=== PATIENT | female | born 1935 | race Caucasian/White ===

== ENCOUNTER 2019-11-02 15:14 | Inpatient (IN) ==
[2019-11-02 16:00] LABS: BASO# 0.11 X1000 (0.0-0.2); BASO% 1.7 % (0.0-0.8); EOS# 0.13 X1000 (0.0-0.7); HEMATOCRIT 43.7 % (37.0-47.0); HEMOGLOBIN 13.1 g/dL (12.0-16.0); LYMPH# 0.89 X1000 (1.2-3.4); LYMPH% 13.8 % (20.5-51.1); MCH 26.4 PG (27-31); MCV 87.9 FL (81-99); MONO# 0.59 X1000 (0.11-0.59); MONO% 9.1 % (1.7-9.3); NEUT# 4.75 X1000 (1.4-6.5); NEUT% 73.4 % (42.2-75.2); PLT 171 X1000 (130-400); RBC 4.97 XMIL (4.2-5.4); RDW 14.3 % (11.5-14.5); WBC 6.47 X1000 (4.8-10.8)
[2019-11-02 16:31] LABS: CALCIUM 10.2 mg/dL (8.8-10.2); CREATININE 1.1 mg/dL (0.5-0.9); POTASSIUM 4.3 mmol/L (3.5-5.1)
[2019-11-02] MEDS ORDERED: LOVENOX SUBQ ONE (16:45)
--- NOTE | 2019-11-02 16:47 | Diag Imaging Result Doc PS360 ---
CHEST-2 VIEWS - 11/02/2019 INDICATION: SOB COMPARISON: None FINDINGS: The lungs are normally expanded and clear. Heart size and mediastinal contours are normal. No pneumothorax or pleural effusion. IMPRESSION: Negative exam. Electronically signed by Ketan Hall 11/02/2019 4:45 PM
--- NOTE | 2019-11-02 17:13 | Diag Imaging Result Doc PS360 ---
CT ANGIOGRM PULMONARY ARTERIES - 11/02/2019 INDICATION: extensive DVT, hypoxia TECHNIQUE: Axial CT images were obtained after administering intravenous contrast. Coronal MIP images were generated. COMPARISON: None FINDINGS: There is no pulmonary embolism. Heart and great vessels are normal. No adenopathy. There are cholecystectomy clips. Otherwise upper abdominal images are normal. There is some hazy dependent atelectasis in the lung bases. There is a calcified granuloma in the right lower lobe. Otherwise, no infiltrates. There are moderate degenerative changes of the spine. No acute or suspicious bony lesion. IMPRESSION: No acute disease. This exam was performed using automated exposure control, adjustment of mA or kV according to patient size, and/or use of iterative reconstruction technique Electronically signed by Ketan Hall 11/02/2019 5:11 PM
--- NOTE | 2019-11-02 17:40 | PROVIDER DOCUMENTATION ---
This chart was entered by Gloria Gamble Scribe, acting as scribe for Marlo Chappell MD. HPI-Musculoskeletal Pain/Inj - GENERAL Stated Complaint: "[facility]ILY [facility]IC" POSS BLOOD CLOTS Time Seen by Provider: 11/02/19 15:18 Source: patient - HX OF PRESENT ILLNESS-MUSKULOSKELTAL Nature of Presenting Problem: 84 yowf c/o LLE tenderness, L calf tenderness w/swelling and erythema starting 4 days ago. pt sts she has been recently tx for bronchitis and has been sitting in recliner more freq but has been moving around. denies guzmán, fever, cp and sob. no recent foreign travel or sitting in vehicle for long periods of time. hx of htn and high cholesterol. pt denies DVT hx. Severity in ED: mild Onset/Duration: 4 days ago Timing: still present Modifying Factors: improves with: nothing Any recent injury?: No Recently seen or treated by another doctor?: Yes - LOWER EXTREMITY PAIN/INJURY Lower Extremities Pain: leg: left Review of Systems - Adult - REVIEW OF SYSTEMS - ADULT Constitutional: reports: no symptoms reported. denies: fever, fatique, night sweats Eyes: reports: no symptoms reported Ears, Nose, Mouth & Throat: reports: no symptoms reported Cardiovascular: reports: no symptoms reported. denies: chest pain Respiratory: reports: no symptoms reported. denies: shortness of breath Gastrointestinal: reports: no symptoms reported. denies: diarrhea, nausea, vomiting Genitourinary: reports: no symptoms reported Musculoskeletal: reports: see HPI, bone pain (LLE pain,swelling, and erythtmea). denies: back pain, muscle weakness, neck pain Integumentary: reports: no symptoms reported Neurological: reports: no symptoms reported Psychiatric: reports: no symptoms reported Endocrine: reports: no symptoms reported Hematologic/Lymphatic: reports: no symptoms reported Allergic/Immunologic: reports: no symptoms reported All Other Systems: Reviewed and Negative Past History - Adult - PAST MEDICAL HISTORY-ADULT Review of Records: reports: Nursing Assessment Review, Medications Reviewed, Social history reviewed & non-contributory. Major Childhood Illnesses: reports: denies history Cardiovascular: reports: HTN, hyperlipidemia Respiratory: reports: denies history Gastrointestinal: reports: denies history Obstetrical/Gynecological: reports: denies history Genitourinary: reports: denies history Musculoskeletal: reports: denies history Neurological: reports: denies history Endocrine/Immune: reports: denies history Other Conditions: reports: denies history - PRIOR SURGERIES/PROCEDURES Surgical/Procedure History: reports: joint replacement (L knee) - IMMUNIZATION STATUS Childhood Immunizations: See Nurse Assessment Flu Vaccine: See Nurse Assessment - FAMILY HISTORY Family History: reviewed, not pertinent - SOCIAL HISTORY Smoking: non-smoker Substance Use: none/never Physical Exam-Injury Related - Physical Exam-Injury Related Initial Vital Signs Reviewed: Yes General Appearance: alert, no apparent distress, obese. negative: slow to resp ond, obtunded, combative Eyes: PERRL/EOMI Head, Ears, Nose, Mouth & Throat: other (OP exam deferred due to Covid-19 pandemic) Neck: non-tender, full range of motion, supple, normal inspection Respiratory: chest non-tender, lungs clear, normal breath sounds, other (hypoxic) Cardiovascular: normal peripheral pulses, regular rate, rhythm Chest/Breast: deferred Peripheral Pulses: dorsalis-pedis (R): 2+, dorsalis-pedis (L): 2+ Abdominal Exam: normal bowel sounds, non tender, soft Female Genitalia/Pelvic Exam: deferred Back Exam: normal inspection Extremity: normal range of motion, normal capillary refill, pelvis stable, calf tenderness (L calf medial and lateral), erythema (slight erythema LLE), swelling (LLE), tenderness (L thigh tenderness on palp medial and lateral). 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) Psych/Mental Status: normal mood/affect, normal thought content, normal thought process, oriented x 3 - Glascow Coma Score Best Eye Response ([place]): (4) open spontaneously Best Verbal Response ([place]): (5) oriented Best Motor Response ([place]): (6) obeys commands Diane Total: 15 Progress - PLAN OF CARE/RESULTS Progress/Plan/Lab Results: Vital Signs - 8 hr 11/02/19 15:29 Temperature 98.7 F Pulse Rate 73 Respiratory Rate 19 Blood Pressure 130/65 O2 Sat by Pulse Oximetry 93 L Laboratory Results - last 24 hr 11/02/19 11/02/19 15:37 15:37 WBC 6.47 RBC 4.97 Hgb 13.1 Hct 43.7 MCV 87.9 MCH 26.4 L MCHC 30.0 L RDW Std Deviation 14.3 Plt Count 171 MPV 11.0 H Immature Gran % (Auto) 0.0 Neut % (Auto) 73.4 Lymph % (Auto) 13.8 L [place] % (Auto) 9.1 Eos % (Auto) 2.0 Baso % (Auto) 1.7 H Immature Gran # (Auto) 0.00 Neut # (Auto) 4.75 Lymph # (Auto) 0.89 L [place] # (Auto) 0.59 Eos # (Auto) 0.13 Baso # (Auto) 0.11 Sodium 140 Potassium 4.3 Chloride 98 Carbon Dioxide 28 Anion Gap 14 BUN 25 H Creatinine 1.1 H Estimated GFR/1.73 m2 48 BUN/Creatinine Ratio 23 Glucose 131 H Calculated Osmolality 286 Calcium 10.2 Orders Category Date Time Status NEWS Score 2-4:Order NEWS Lactate Series NOW Care 11/02/19 15:48 Active CHEST-2 VIEWS [RAD] Stat Exams 11/02/19 15:[address] ANGIOGRM PULMONARY ARTERIES [CT] Stat Exams 11/02/19 16:02 Completed BASIC METABOLIC PANEL [CHEM] Stat Lab 11/02/19 15:37 Completed CBC WITH DIFF [HEME] Stat Lab 11/02/19 15:37 Completed D-DIMER [COAG] Stat Lab 11/02/19 15:37 Received Enoxaparin [Lovenox] Med 11/02/19 16:45 Discontinued 80 mg SUBQ NOW ONE Venous U/S Left Leg Stat Ther 11/02/19 15:25 Completed Transfer/Admit Order [TRANSFER] Routine Transfer 11/02/19 17:27 Ordered Result Diagrams: 11/02/19 15:37 11/02/19 15:37 - XRAY 1 XRAY Study: Chest Impression: Normal, See EMR Report (CHEST-2 VIEWS - 11/02/2019 INDICATION: SOB COMPARISON: None FINDINGS: The lungs are normally expanded and clear. Heart size and mediastinal contours are normal. No pneumothorax or pleural effusion. IMPRESSION: Negative exam. Electronically signed by Ketan Hall 11/02/2019 4:45 PM) - CT/MRI 1 CT Study: Angiogram Impression: See EMR Report (CT ANGIOGRM PULMONARY ARTERIES - 11/02/2019 INDICATION: extensive DVT, hypoxia TECHNIQUE: Axial CT images were obtained after administering intravenous contrast. Coronal MIP images were generated. COMPARISON: None FINDINGS: There is no pulmonary embolism. Heart and great vessels are normal. No adenopathy. There are cholecystectomy clips. Otherwise upper abdominal images are normal. There is some hazy dependent atelectasis in the lung bases. There is a calcified granuloma in the right lower lobe. Otherwise, no infiltrates. There are moderate degenerative changes of the spine. No acute or suspicious bony lesion. IMPRESSION: No acute disease. This exam was performed using automated exposure control, adjustment of mA or kV according to patient size, and/or use of iterative reconstruction technique Electronically signed by Ketan Hall 11/02/2019 5:11 PM) Comparison with other Films: no prior study - ULTRASOUND (By Radiology) 1 US Study: Lower Ext Impression: Abnormal, See EMR Report (Impression: Extensive L leg DVT all the way up to iliac crest) - CONSULTS/PCP/HOSPITALIST Notification #1 *Consult/PCP/Hospitalist*: Janine Time Discussed: 16:10 Consult Disposition: other (call back when Labs are complete) Departure - Departure Date of Disposition Decision: 11/02/19 Time of Disposition Decision: 16:10 DIAGNOSIS: Acute deep vein thrombosis (DVT) of left lower extremity Qualifiers: Affected thrombotic vein of extremity: femoral Qualified Code(s): I82.412 - Acute embolism and thrombosis of left femoral vein Disposition: ADMITTED INPATIENT 09 Certified Medical Emergency: Emergent Condition: Good Referrals and Follow-Ups: None,PCP [Primary Care Provider] - - Critical Care Note This patient required my direct & personal management of CC.: No Attestation - Physician/ CINDA Attestation Patient care was provided by Advanced Practice Provider:: No The physician spent face to face time with patient:: Yes Advanced Practice Provider documentation review:: Supervising physician onsite and consulted in the evaluation and care of this patient. The physician did have a face to face encounter with the patient. This chart was documented by the indicated scribe, (Gloria Gamble Scribe) and accurately reflects the services I performed and decisions made by me, Marlo Chappell MD, as attested by the provider's signature.
--- NOTE | 2019-11-02 18:19 | HISTORY AND PHYSICAL ---
ADDENDUM: I have seen and examined Ms. Simon today. Ms. Simon presented because of left lower extremity unilateral swelling which has been going on for the past 4 days. She refers to have been just in bed and/or sitting down for the past 2 weeks because of ongoing bronchitis that she has been battling. Upon presenting to the emergency room, she was evaluated. A Doppler ultrasound was done which I have been told the preliminary result shows an extensive left lower extremity DVT. A CAT scan was done because she was having some difficulty breathing, but that has come back unremarkable. Ms. Simon is being admitted for extensive symptomatic left lower extremity DVT, for medical care. We are going to start her on therapeutic Lovenox and transition it to oral anticoagulant. I think this is probably provoked. Please refer to the details of the history and physical that has been dictated by the COMPOSITE BOND WORKER in the chart. I have discussed the plan with her. I have also discussed my findings and the plan with Ms. Simon. cc: Migel Nayak MD
[2019-11-02] MEDS ORDERED: ZOFRAN IV PRN (18:26)
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
[2019-11-02] MEDS: DESYREL PO PRN (21:30)
[2019-11-02] MEDS: ROBAXIN PO SCH (21:30)
[2019-11-03] MEDS: TYLENOL PO PRN (03:53)
[2019-11-03] MEDS ORDERED: LOVENOX SUBQ SCH (05:00)
[2019-11-03 06:57] LABS: BASO# 0.02 X1000 (0.0-0.2); BASO% 0.4 % (0.0-0.8); EOS# 0.24 X1000 (0.0-0.7); EOS% 5.1 % (0.0-10.0); HEMATOCRIT 38.4 % (37.0-47.0); HEMOGLOBIN 11.5 g/dL (12.0-16.0); IMM GRAN# 0.02 X1000 (0.0-0.04); IMM GRAN% 0.4 % (0.0-0.5); LYMPH# 1.26 X1000 (1.2-3.4); LYMPH% 26.8 % (20.5-51.1); MCH 26.5 PG (27-31); MCHC 29.9 g/dL (33-37); MCV 88.5 FL (81-99); MONO# 0.47 X1000 (0.11-0.59); NEUT# 2.69 X1000 (1.4-6.5); NEUT% 57.3 % (42.2-75.2); PLT 151 X1000 (130-400); RBC 4.34 XMIL (4.2-5.4)
[2019-11-03 07:16] LABS: ALB/GLOB RATIO 1.2; ALBUMIN 3.4 g/dL (3.5-5.0); CALCIUM 9.3 mg/dL (8.8-10.2); CREATININE 1.1 mg/dL (0.5-0.9); MAGNESIUM 2.1 mg/dL (1.5-2.7); POTASSIUM 4.3 mmol/L (3.5-5.1); TOTAL BILIRUBIN 0.35 mg/dL (0.20-1.00); TOTAL PROTEIN 6.3 g/dL (6.3-8.3)
--- NOTE | 2019-11-03 07:46 | EKG Report ---
Test Performed on : 11/03/2019 07:12:47 AM Test Reason : follow up Blood Pressure : / mmHG Vent. Rate : 062 BPM Atrial Rate : 062 BPM P-R Int : 270 ms QRS Dur : 078 ms QT Int : 462 ms P-R-T Axes : 051 002 054 degrees QTc Int : 468 ms Sinus rhythm. with 1st degree AV block. Anteroseptal infarct , age undetermined Abnormal ECG No previous ECGs available Confirmed by Abebe HOFFMAN, Tomás Pruett ([id number]) on 11/05/2019 9:10:06 AM
[2019-11-03] MEDS ORDERED: HYDROCHLOROTHIAZIDE PO SCH (09:00)
[2019-11-03] MEDS: ELIQUIS PO SCH ×2 (09:12→20:27)
[2019-11-03] MEDS: ROBAXIN PO SCH ×2 (09:13→20:27)
[2019-11-03] MEDS: LIPITOR PO SCH (09:13)
--- NOTE | 2019-11-03 13:32 | PROGRESS NOTE ---
DATE: 11/03/2019 SUBJECTIVE: I have seen and examined Ms. Simon today. Ms. Simon continues to have some pain and tightness of the left lower extremity; otherwise, no new complaints. She did have a lot of concerns about prognoses and length of therapy of these DVTs, which all were addressed. OBJECTIVE: Current vitals: Blood pressure is 127/54, pulse of 55, respiration is 16, temperature is 98 degrees. The patient is saturating 94%. General: On general exam, Ms. Simon is an 84-year- old elderly female. She is in bed, no distress. HEENT: Mucosa is pink and moist. Anicteric. Acyanotic. Neck: Supple. Chest: Good air entry bilaterally. No crepitations. No rhonchi. Cardiovascular: Regular rate and rhythm. There are no murmurs, no rubs, no gallops. GI/Abdomen: Soft, distended, but nontender. Bowel sounds present. Extremities: No pedal edema. The patient has scars on both knees suggestive of bilateral knee surgeries in the past. KIER TENDER: Patient is awake, alert, oriented. There is no focal deficit. LABORATORY DATA: CBC remained stable. Chemistry is also unremarkable. MEDICATIONS: Anticoagulant has been switched to p.o. Eliquis. ASSESSMENT: 1. Extensive deep vein thrombosis in the left lower extremity. The patient is currently on Eliquis. 2. Recent bout of bronchitis. 3. History of transient ischemic attack. 4. Fibromyalgia. 5. Hypertension. 6. Dyslipidemia. PLAN: So, in general, I think Ms. Simon is doing well. She has been started on p.o. Eliquis 10 mg twice per day for a total of 7 days, after which this will be transitioned to 5 mg b.i.d. for the length of treatment. She will need to follow up with hematology oncologist to be monitored on an outpatient basis. We will advise that Ms Simon remain in bed for 24 hours until she gets 3 doses of Eliquis, after which I think she will be safe to at least get around to use the restroom or use a bedside commode. cc: Migel Nayak MD
--- NOTE | 2019-11-03 16:43 | Extremity Venous Study ---
PROCEDURE NAME: Venous U/S Left Leg - 11/02/2019 INDIAN TRADER: Addison. INDICATION: Pain and history of DVT. FINDINGS: The deep and superficial veins of the left lower extremity were visualized. There is extensive deep venous thrombus noted in the left leg extending from the common femoral vein distally. In most locations, there is absent flow or significantly diminished flow noted. There is also superficial thrombus noted in the greater saphenous vein to the saphenofemoral junction. IMPRESSION: Extensive deep venous thrombosis in the left lower extremity. cc: All Rudd MD
[2019-11-03] MEDS: DESYREL PO PRN (20:27)
[2019-11-04] MEDS: TYLENOL PO PRN ×2 (00:28→20:58)
[2019-11-04] MEDS: ROBAXIN PO SCH ×2 (09:17→20:58)
[2019-11-04] MEDS: LIPITOR PO SCH (09:17)
[2019-11-04] MEDS: ELIQUIS PO SCH ×2 (09:17→20:58)
[2019-11-04] MEDS ORDERED: ZITHROMAX PO ONE (11:38)
--- NOTE | 2019-11-04 12:54 | PROGRESS NOTE ---
DATE: 11/04/2019 SUBJECTIVE: I have seen and examined Ms. Simon today. She refers to be doing a lot better. She thinks the left leg tightness is getting better. Still complains of some pains, especially in the thighs. OBJECTIVE: Vital signs: Blood pressure is 131/48, pulse of 60, respirations 19, temperature 97.7 degrees. General: Ms. Simon is an 84-year-old female. She is in bed, no distress. HEENT: Mucosa is pink and moist. Anicteric. Acyanotic. Neck: Supple. Chest: Clear to auscultation. No crepitations. No rhonchi. Cardiovascular: Regular rate and rhythm. Gastrointestinal: Abdomen is soft, nontender. Bowel sounds present. Extremities: No pedal edema. There is a scar on both knees from previous surgeries. Central nervous system: Patient is awake, alert, and oriented. No focal deficit. LABORATORY DATA: None for today. MEDICATIONS: Have all been reviewed. ASSESSMENT: 1. Extensive left lower extremity deep vein thrombosis. The patient continues to be on therapeutic Eliquis. 2. Acute bronchitis. The patient has been started on azithromycin. 3. History of transient ischemic attack. 4. Fibromyalgia. 5. Hypertension, controlled. 6. Dyslipidemia, controlled. PLAN: For now, we are going to continue with the current management. We will get Physical Therapy to evaluate Ms. Simon today and see if she is able to get around. Hopefully, if she does, then we can potentially discharge her in the morning. cc: Migel Nayak MD
[2019-11-04] MEDS: DESYREL PO PRN (21:03)
[2019-11-05 07:39] VITALS: BP 141/47
[2019-11-05] MEDS ORDERED: ZITHROMAX PO SCH (09:00)
[2019-11-05] MEDS: ROBAXIN PO SCH (09:03)
[2019-11-05] MEDS: ELIQUIS PO SCH (09:03)
[2019-11-05] MEDS: LIPITOR PO SCH (09:03)
--- NOTE | 2019-11-05 18:49 | DISCHARGE SUMMARY ---
ADMISSION DATE: 11/04/2019 DISCHARGE DATE: 11/05/2019 DISPOSITION: Home. FOLLOWUP: 1. Dr. Eckert. 2. Dr. Girard. CONSULTATIONS: During this admission, none. INVASIVE PROCEDURES: During this admission, none. DIAGNOSTIC DATA: Imaging studies of significance: 1. Doppler ultrasound did show extensive DVT noted in the left leg extending from the common femoral vein distally. 2. A CT of the lungs showed no acute disease and no PE. ADMISSION DIAGNOSES: 1. Extensive left lower extremity deep vein thrombosis. 2. Recent bout of bronchitis. 3. History of transient ischemic attack. 4. Fibromyalgia. DISCHARGE DIAGNOSES: 1. Extensive left lower extremity deep venous thrombosis, presumably provoked from immobility. 2. Acute bronchitis. 3. History of transient ischemic attack. 4. Fibromyalgia. 5. Hypertension. 6. Dyslipidemia. 7. Chronic lower back pain, on chronic opioid therapy. The patient follows up with Dr. [facility]. 8. Acute allergic rhinosinusitis. DISCHARGE MEDICATIONS: 1. Hydrochlorothiazide 40 mg p.o. daily. 2. Atorvastatin 20 mg p.o. daily. 3. Robaxin 1 tablet b.i.d. 4. Trazodone. 5. Eliquis 10 mg b.i.d. for 5 more days, then 5 mg b.i.d. 6. Cetirizine 10 mg p.o. daily. PRESENTING COMPLAINT: Left lower extremity tenderness and pain. HISTORY OF PRESENTING COMPLAINT: Ms. Simon is an 84-year-old female who is very self- independent. She says she has been fighting with bronchitis for the past 3 weeks and as a result of that she has been very immobile. A couple days prior to admission, she realized her left lower extremity was getting slightly tight and tender, so she came to the emergency room where she was evaluated. A Doppler ultrasound was done which showed an extensive DVT. CT of the lung was done which showed no acute process. Ms. Simon was admitted for further medical care. HOSPITAL COURSE: Ms. Simon was started on subcutaneous full-dose Lovenox for a couple of days, and subsequently this was transitioned to p.o. Eliquis. After 2 days on stabilized dose of Eliquis, physical therapy and walking around she did pretty well. She feels a lot stronger. She thinks the tightness and the tenderness in the leg has completely resolved. We think she is therefore stable to be discharged, on regular oral anticoagulant therapy. Social Work was also consulted for medication assistance. Ms. Simon will follow up with Dr. Girard for evaluation of her thrombophilic workup. All the discharge instructions were discussed with her. We also discussed in detail about side effects and complications of the new anticoagulant. Time spent for discharge is 35 minutes. cc: Migel Nayak MD MTDD
== END 2019-11-05 12:03 | disposition home or self-care (01) | DRG 301 ==
LOC: ED 15:14 → 3N 15:14
PROVIDERS: ATTEND Internal Medicine